=== PATIENT | female | born 1950 | race Caucasian/White ===

== ENCOUNTER → 2016-06-21 | Outpatient (CLI) | payer MEDICARE, OTHER | LOC: RAD 06-13 08:00 | DX: G70.00 Myasthenia gravis without (acute) exacerbation (principal); K44.9 Diaphragmatic hernia without obstruction or gangrene | CPT/HCPCS: 74220 ==

== ENCOUNTER → 2020-06-18 | Outpatient (CLI) | payer MEDICARE, OTHER | LOC: LAB 12:52 | DX: G50.0 Trigeminal neuralgia (principal) | CPT/HCPCS: 36415; 85652 ==